=== PATIENT | female | born 1980 | race Caucasian/White ===

== ENCOUNTER 2017-10-10 12:43 | Emergency (ER) | payer OTHER ==
[~2017-10-10] VITALS: Ht 167.6 cm; Wt 80.7 kg
--- NOTE | ~2017-10-10 | EKG ---
[place] [address] [facility] [facility] [place] [address] ELECTROCARDIOGRAM REPORT Name: BRAVO GOLDEN [facility]: [facility] [id number] Admission: 10/10/17 Attend Phys: Discharge: Date of : 80 Report #: [id number] THIS REPORT FOR: //name// [facility] ED Test Date: 2017-10-10 Test Time: 14:19:44 Pat Name: BRAVO GOLDEN Department: Room: Gender: F [employer]er: [facility] : 1980 Requested By: Jose Tijerina Order Number: [id number] MD: Ermias Ames Measurements Intervals [place] Rate: 89 P: 40 ND: 163 QRS: 28 QRSD: 94 T: 48 QT: 361 QTc: 440 Interpretive Statements Sinus rhythm Poor R wave progression No previous ECG available for comparison Electronically Signed On 10-10-2017 15:40:38 CDT by Ermias Ames [email or web address] <ELECTRONICALLY SIGNED> By: Ermias Ames MD, [facility] 10/10/17 1540 1419 1419 Ermias Ames MD, FACC /EPI
[2017-10-10] MEDS ORDERED: LISINOPRIL10 MG PO (12:58)
[2017-10-10] MEDS ORDERED: HUMALOG100 UNIT/1 SUBQ (12:59)
[2017-10-10] MEDS ORDERED: NEURONTIN300 MG PO (13:02)
[2017-10-10 13:25] LABS: HCO3 25.2 mmol/L (22.0-26.0); PCO2 VENOUS 47.6 mmHg (41.0-51.0); PO2 VENOUS 29.6 mmHg (35.0-45.0)
[2017-10-10 13:28] LABS: ABSOLUTE NEUTROPHILS 5.8 thou/uL (1.4-8.2); BASOPHILS 1.3 % (0.0-2.0); EOSINOPHILS 4.8 % (0.0-3.0); HEMATOCRIT 38.8 % (37.0-47.0); HEMOGLOBIN 13.1 gm/dL (12.0-15.0); LYMPHOCYTES 20.4 % (24.0-44.0); MCH 29.3 pg (26.0-34.0); MCHC 33.7 g/dL (28.0-37.0); MONOCYTES 4.9 % (1.0-8.0); PLATELET COUNT 280 thou/uL (150-400); POLYS 68.6 % (36.0-66.0); RBC 4.46 mil/uL (4.20-5.00); RDW 12.8 % (10.5-14.5); WBC 8.5 thou/uL (4.0-11.0)
[2017-10-10 13:29] LABS: URINE BILIRUBIN NEGATIVE (Negative); URINE BLOOD TRACE (Negative); URINE CLARITY SL CLOUDY; URINE COLOR YELLOW; URINE GLUCOSE-RANDOM* 3+ (Negative); URINE KETONES TRACE (Negative); URINE LEUKOCYTES-REFLEX NEGATIVE (Negative); URINE NITRITE-REFLEX NEGATIVE (Negative); URINE PROTEIN (DIPSTICK) 2+ (Negative); URINE SPECIFIC GRAVITY 1.015 (1.005-1.035); URINE UROBILINOGEN 0.2 E.U./dl (0.2-1.0)
[2017-10-10 13:38] LABS: BACTERIA-REFLEX 1-9 Few /HPF (None Seen); CASTS None Seen /LPF (None Seen); CRYSTALS None Seen /LPF (None Seen); SQUAMOUS 0-3 Few /LPF (0-3); URINE RBC None Seen /HPF (0-2); URINE WBC-REFLEX 0-5 Rare /HPF (0-5)
[2017-10-10 13:39] LABS: CREATININE 1.6 mg/dL (0.6-1.0); POTASSIUM 4.3 mmol/L (3.5-5.1)
[2017-10-10 13:42] LABS: ALBUMIN 2.9 g/dL (3.4-5.0); TOTAL BILIRUBIN 0.4 mg/dL (<0.1-1.0); TOTAL PROTEIN 6.7 g/dL (6.4-8.2)
[2017-10-10 16:43] VITALS: BP 182/90
== END 2017-10-10 16:44 | disposition home or self-care (01) ==
LOC: ER 12:43
PROVIDERS: Physician Assistant
DX: E11.65 Type 2 diabetes mellitus with hyperglycemia (principal); E86.0 Dehydration; N17.9 Acute kidney failure, unspecified; R51 Headache; R07.9 Chest pain, unspecified; Z88.2 Allergy status to sulfonamides; Z79.4 Long term (current) use of insulin